=== PATIENT | female | born 1995 | race Caucasian/White ===

== ENCOUNTER 2017-10-18 01:27 | Inpatient (IN) | payer BC ==
[~2017-10-18] VITALS: Ht 167.6 cm; Wt 98.7 kg
[~2017-10-18 01:27] MED LIST: ACET120S; ALBIPROI INH; ALBU.083IS IH; ALBU90OI6 INH; ALBU90OI61 INH; AMOCLA875 PO; Ativan1 MG PO; B/C; BENADRYL25 MG PO; CEPH500; CIPR500 PO; CRUTCH4 USE; CYCL10 PO; EPIN.3I IM; FAMO40 PO; FERR325 PO; HYDACE5 PO; IBUP800 PO; INSLIS75I; LORA.5 PO; ONDA4 PO; OTC VITAMINS; PHENA100 PO; PRED10 PO; PRED20 PO; PRENA1 CHEW TA1.4 MG; PROG100 PO; PROM25; Pepcid20 MG PO; Prednisone10 MG PO; TOPI50 PO; VERA120ERB PO; [UNRECOGNIZED DRUG - OTHER]; [UNRECOGNIZED DRUG - REMARK]
[2017-10-18 02:11] LABS: BASOPHILS ABSOLUTE AUTO 0.09 K/mm3 (0.00-0.23); BASOPHILS PERCENT AUTO 1 % (0-2); EOSINOPHILS ABSOLUTE AUTO 0.31 K/mm3 (0.00-0.68); EOSINOPHILS PERCENT AUTO 3 % (0-6); Hematocrit 40.1 % (33.0-51.0); IMMATURE GRAN ABSOLUTE AUTO 0.03 K/mm3 (0.00-0.10); IMMATURE GRAN PERCENT AUTO 0 % (0-1); LYMPHOCYTES ABSOLUTE AUTO 5.09 K/mm3 (0.84-5.20); LYMPHOCYTES PERCENT AUTO 45 % (21-46); MONOCYTES ABSOLUTE AUTO 1.06 K/mm3 (0.16-1.47); MONOCYTES PERCENT AUTO 9 % (4-13); Mean Corpuscular HGB 27.7 pg (26.0-34.0); Mean Corpuscular HGB Conc 32.4 g/dL (31.5-36.5); Mean Corpuscular Volume 86 fL (80-100); Mean Platelet Volume 10.2 fL (9.1-12.4); NEUTROPHILS ABSOLUTE AUTO 4.86 K/mm3 (1.96-9.15); NEUTROPHILS PERCENT AUTO 42 % (41-73); Platelet Count 338 K/mm3 (150-400); RDW Coefficient Variation 13.1 % (11.7-14.2); RDW Standard Deviation 40.5 fL (35.1-46.3); Red Blood Cell Count 4.69 M/mm3 (3.80-5.20); White Blood Cell Count 11.44 K/mm3 (4.00-11.30)
[2017-10-18 02:23] LABS: Alanine Aminotransfer (ALT/SGP 14 U/L (12-78); Albumin, Blood 3.8 g/dL (3.4-5.0); Alk Phos 73 U/L (50-136); Anion Gap 7 mmol/L (6-16); Aspartate Aminotrans (AST/SGOT 9 U/L (12-37); Bilirubin, Total 0.2 mg/dL (0.1-1.0); Blood Urea Nitrogen 16 mg/dL (8-24); Bun/Creatinine Ratio 26.3 (12.0-20.0); CO2, Blood 28 mmol/L (21-32); Calcium, Blood 8.5 mg/dL (8.5-10.1); Chloride, Blood 104 mmol/L (98-108); Creatinine, Blood 0.61 mg/dL (0.40-1.00); Globulin, Blood 3.9 g/dL (2.2-4.0); Glomerular Filtration Rate >60 (60-); Glucose, Blood 68 mg/dL (70-99); Potassium, Blood 3.9 mmol/L (3.5-5.5); Sodium, Blood 139 mmol/L (136-145); Total Protein, Blood 7.7 g/dL (6.4-8.2)
[2017-10-19 03:44] LABS: BASOPHILS ABSOLUTE AUTO 0.03 K/mm3 (0.00-0.23); BASOPHILS PERCENT AUTO 0 % (0-2); EOSINOPHILS PERCENT AUTO 0 % (0-6); Hematocrit 39.5 % (33.0-51.0); IMMATURE GRAN ABSOLUTE AUTO 0.13 K/mm3 (0.00-0.10); IMMATURE GRAN PERCENT AUTO 1 % (0-1); LYMPHOCYTES ABSOLUTE AUTO 0.89 K/mm3 (0.84-5.20); LYMPHOCYTES PERCENT AUTO 4 % (21-46); MONOCYTES ABSOLUTE AUTO 0.49 K/mm3 (0.16-1.47); MONOCYTES PERCENT AUTO 2 % (4-13); Mean Corpuscular HGB 27.4 pg (26.0-34.0); Mean Corpuscular HGB Conc 32.9 g/dL (31.5-36.5); Mean Platelet Volume 9.9 fL (9.1-12.4); NEUTROPHILS ABSOLUTE AUTO 22.19 K/mm3 (1.96-9.15); NEUTROPHILS PERCENT AUTO 94 % (41-73); Platelet Count 367 K/mm3 (150-400); RDW Coefficient Variation 13.3 % (11.7-14.2); RDW Standard Deviation 40.5 fL (35.1-46.3); Red Blood Cell Count 4.75 M/mm3 (3.80-5.20); White Blood Cell Count 23.73 K/mm3 (4.00-11.30)
[2017-10-19 03:57] LABS: Mean Corpuscular Volume 83 fL (80-100)
[2017-10-19 04:14] LABS: Anion Gap 9 mmol/L (6-16); Blood Urea Nitrogen 13 mg/dL (8-24); Bun/Creatinine Ratio 25.9 (12.0-20.0); CO2, Blood 26 mmol/L (21-32); Chloride, Blood 106 mmol/L (98-108); Glomerular Filtration Rate >60 (60-); Glucose, Blood 171 mg/dL (70-99); Sodium, Blood 141 mmol/L (136-145)
[2017-10-20 05:23] LABS: BASOPHILS ABSOLUTE AUTO 0.01 K/mm3 (0.00-0.23); BASOPHILS PERCENT AUTO 0 % (0-2); EOSINOPHILS PERCENT AUTO 0 % (0-6); Hematocrit 38.3 % (33.0-51.0); Hemoglobin 12.6 g/dL (11.5-16.0); IMMATURE GRAN PERCENT AUTO 1 % (0-1); LYMPHOCYTES PERCENT AUTO 7 % (21-46); MONOCYTES ABSOLUTE AUTO 0.45 K/mm3 (0.16-1.47); MONOCYTES PERCENT AUTO 2 % (4-13); Mean Corpuscular HGB 27.8 pg (26.0-34.0); Mean Corpuscular HGB Conc 32.9 g/dL (31.5-36.5); Mean Corpuscular Volume 85 fL (80-100); Mean Platelet Volume 10.4 fL (9.1-12.4); NEUTROPHILS ABSOLUTE AUTO 19.64 K/mm3 (1.96-9.15); NEUTROPHILS PERCENT AUTO 91 % (41-73); Platelet Count 328 K/mm3 (150-400); RDW Coefficient Variation 13.6 % (11.7-14.2); RDW Standard Deviation 42.1 fL (35.1-46.3); Red Blood Cell Count 4.53 M/mm3 (3.80-5.20)
[2017-10-20 06:07] LABS: Anion Gap 10 mmol/L (6-16); Blood Urea Nitrogen 18 mg/dL (8-24); Bun/Creatinine Ratio 32.3 (12.0-20.0); CO2, Blood 24 mmol/L (21-32); Calcium, Blood 8.8 mg/dL (8.5-10.1); Chloride, Blood 105 mmol/L (98-108); Creatinine, Blood 0.56 mg/dL (0.40-1.00); Glomerular Filtration Rate >60 (60-); Glucose, Blood 121 mg/dL (70-99); Potassium, Blood 4.1 mmol/L (3.5-5.5); Sodium, Blood 139 mmol/L (136-145)
[2017-10-20] MEDS ORDERED: EPIPEN 2-P0.3 MG/0.3 IM (11:44)
[2017-10-20] MEDS ORDERED: DIPH50 PO (11:48)
[2017-10-20] MEDS ORDERED: FAMO20 PO (11:49)
[2017-10-20] MEDS ORDERED: PRED20 PO (11:51)
== END 2017-10-20 12:00 | disposition home or self-care (01) | DRG 916 ==
LOC: ER 01:27 → ICUW 02:27
PROVIDERS: Emergency Medicine; Internal Medicine Critical Care Medicine
DX: T78.09XA Anaphylactic reaction due to other food products, initial encounter (principal); D72.829 Elevated white blood cell count, unspecified; F17.210 Nicotine dependence, cigarettes, uncomplicated; G43.909 Migraine, unspecified, not intractable, without status migrainosus; T38.0X5A Adverse effect of glucocorticoids and synthetic analogues, initial encounter; J45.909 Unspecified asthma, uncomplicated; Z79.899 Other long term (current) drug therapy; Z88.0 Allergy status to penicillin; Z88.8 Allergy status to other drugs, medicaments and biological substances; Z91.030 Bee allergy status; Z98.84 Bariatric surgery status
CPT/HCPCS: 36415; 71046; 80048; 80053; 85025; 86160; 94640; 96372; 96374; 96375; 99285; J0171; J1200; J2930; J3490; J7070; Q2038

== ENCOUNTER 2017-10-22 18:28 | Emergency (ER) | payer BC ==
[~2017-10-22] VITALS: Ht 167.6 cm; Wt 95.2 kg
[~2017-10-22 18:28] MED LIST changes: +DIPH50 PO; +EPIPEN 2-P0.3 MG/0.3 IM; +FAMO20 PO
[2017-10-22] MEDS ORDERED: BENADRYL25 MG PO (20:40)
[2017-10-22] MEDS ORDERED: Prednisone50 MG PO (20:40)
== END 2017-10-22 22:55 | disposition home or self-care (01) ==
LOC: ER 18:28
DX: T78.2XXA Anaphylactic shock, unspecified, initial encounter (principal); J45.909 Unspecified asthma, uncomplicated; Z91.038 Other insect allergy status; Z88.0 Allergy status to penicillin; Z91.018 Allergy to other foods; Z88.6 Allergy status to analgesic agent; Z79.899 Other long term (current) drug therapy; Z79.52 Long term (current) use of systemic steroids; Z90.89 Acquired absence of other organs
CPT/HCPCS: 36415; 96374; 96375; 99283; J0171; J1100; J1200

== ENCOUNTER 2017-11-19 19:09 | Emergency (ER) | payer BC ==
[~2017-11-19] VITALS: Ht 167.6 cm; Wt 96.6 kg
[~2017-11-19 19:09] MED LIST changes: -ASTHMANEFRIN R1 EACH INH; -METPRE4DP PO; -Pepcid40 MG PO; -Prednisone20 MG PO; -ZYRTEC PO
[2017-11-19] MEDS ORDERED: METPRE4DP PO (20:11)
[2017-11-19] MEDS ORDERED: Pepcid40 MG PO (20:11)
[2017-11-19] MEDS ORDERED: DIPH50 PO (20:11)
== END 2017-11-19 20:18 | disposition home or self-care (01) ==
LOC: ER 19:09
DX: T78.3XXA Angioneurotic edema, initial encounter (principal); Z79.899 Other long term (current) drug therapy; Z88.6 Allergy status to analgesic agent; Z88.0 Allergy status to penicillin; Z91.018 Allergy to other foods; Z91.038 Other insect allergy status
CPT/HCPCS: 96374; 96375; 99283; J1200; J2930; J3490

== ENCOUNTER → 2017-11-19 | Outpatient (CLI) | payer BC ==
[~2017-11-19] MED LIST changes: +ASTHMANEFRIN R1 EACH INH; +METPRE4DP PO; +Pepcid40 MG PO; +Prednisone20 MG PO; +Prednisone50 MG PO; +ZYRTEC PO
== END ==
LOC: LAB 11:50 → LAB SHORT 11:50
PROVIDERS: Allergy & Immunology Allergy
DX: T78.2XXD Anaphylactic shock, unspecified, subsequent encounter (principal); T78.3XXD Angioneurotic edema, subsequent encounter; T78.00XD Anaphylactic reaction due to unspecified food, subsequent encounter; T63.441D Toxic effect of venom of bees, accidental (unintentional), subsequent encounter; Q82.2 Congenital cutaneous mastocytosis
CPT/HCPCS: 81050; 82542

== ENCOUNTER 2017-11-30 14:23 | Emergency (ER) | payer BC ==
[~2017-11-30] VITALS: Ht 167.6 cm; Wt 93.4 kg
[~2017-11-30 14:23] MED LIST changes: +METPRE4DP PO; +Pepcid40 MG PO
[2017-11-30] MEDS ORDERED: Prednisone20 MG PO (18:51)
== END 2017-11-30 18:58 | disposition home or self-care (01) ==
LOC: ER 14:23
DX: T78.40XA Allergy, unspecified, initial encounter (principal); Z91.030 Bee allergy status; Z88.0 Allergy status to penicillin; Z88.6 Allergy status to analgesic agent; Z79.899 Other long term (current) drug therapy; Z91.018 Allergy to other foods; Z79.52 Long term (current) use of systemic steroids; G43.909 Migraine, unspecified, not intractable, without status migrainosus; J45.909 Unspecified asthma, uncomplicated; F17.200 Nicotine dependence, unspecified, uncomplicated
CPT/HCPCS: 94640; 96361; 96374; 96375; 99283; J1200; J2930; J3490; J7030

== ENCOUNTER 2017-12-15 19:23 | Observation (INO) | payer BC ==
[~2017-12-15] VITALS: Ht 167.6 cm; Wt 96.6 kg
[~2017-12-15 19:23] MED LIST changes: +Prednisone20 MG PO
[2017-12-15] MEDS ORDERED: ZYRTEC PO (19:31)
[2017-12-15 22:55] LABS: BASOPHILS ABSOLUTE AUTO 0.06 K/mm3 (0.00-0.23); BASOPHILS PERCENT AUTO 1 % (0-2); EOSINOPHILS ABSOLUTE AUTO 0.22 K/mm3 (0.00-0.68); EOSINOPHILS PERCENT AUTO 3 % (0-6); Hematocrit 40.6 % (33.0-51.0); Hemoglobin 13.3 g/dL (11.5-16.0); IMMATURE GRAN ABSOLUTE AUTO 0.01 K/mm3 (0.00-0.10); IMMATURE GRAN PERCENT AUTO 0 % (0-1); LYMPHOCYTES PERCENT AUTO 41 % (21-46); MONOCYTES ABSOLUTE AUTO 0.54 K/mm3 (0.16-1.47); MONOCYTES PERCENT AUTO 7 % (4-13); Mean Corpuscular HGB 28.2 pg (26.0-34.0); Mean Corpuscular HGB Conc 32.8 g/dL (31.5-36.5); Mean Corpuscular Volume 86 fL (80-100); Mean Platelet Volume 9.9 fL (9.1-12.4); NEUTROPHILS ABSOLUTE AUTO 3.98 K/mm3 (1.96-9.15); NEUTROPHILS PERCENT AUTO 49 % (41-73); Platelet Count 396 K/mm3 (150-400); RDW Coefficient Variation 13.7 % (11.7-14.2); RDW Standard Deviation 43.2 fL (35.1-46.3); Red Blood Cell Count 4.71 M/mm3 (3.80-5.20); White Blood Cell Count 8.21 K/mm3 (4.00-11.30)
[2017-12-15 23:09] LABS: Alanine Aminotransfer (ALT/SGP 20 U/L (12-78); Albumin, Blood 4.1 g/dL (3.4-5.0); Albumin/Globulin Ratio 1.1 (0.8-1.8); Alk Phos 66 U/L (50-136); Anion Gap 7 mmol/L (6-16); Aspartate Aminotrans (AST/SGOT 11 U/L (12-37); Bilirubin, Total 0.2 mg/dL (0.1-1.0); Blood Urea Nitrogen 12 mg/dL (8-24); Bun/Creatinine Ratio 19.4 (12.0-20.0); CO2, Blood 26 mmol/L (21-32); Calcium, Blood 8.8 mg/dL (8.5-10.1); Chloride, Blood 107 mmol/L (98-108); Creatinine, Blood 0.62 mg/dL (0.40-1.00); Globulin, Blood 3.7 g/dL (2.2-4.0); Glomerular Filtration Rate >60 (60-); Glucose, Blood 82 mg/dL (70-99); Potassium, Blood 3.6 mmol/L (3.5-5.5); Sodium, Blood 140 mmol/L (136-145); Total Protein, Blood 7.8 g/dL (6.4-8.2)
[2017-12-16 03:47] LABS: BASOPHILS ABSOLUTE AUTO 0.01 K/mm3 (0.00-0.23); BASOPHILS PERCENT AUTO 0 % (0-2); EOSINOPHILS PERCENT AUTO 0 % (0-6); Hematocrit 39.3 % (33.0-51.0); Hemoglobin 13.1 g/dL (11.5-16.0); IMMATURE GRAN ABSOLUTE AUTO 0.01 K/mm3 (0.00-0.10); IMMATURE GRAN PERCENT AUTO 0 % (0-1); LYMPHOCYTES PERCENT AUTO 9 % (21-46); MONOCYTES ABSOLUTE AUTO 0.03 K/mm3 (0.16-1.47); MONOCYTES PERCENT AUTO 1 % (4-13); Mean Corpuscular HGB 28.5 pg (26.0-34.0); Mean Corpuscular HGB Conc 33.3 g/dL (31.5-36.5); Mean Corpuscular Volume 85 fL (80-100); Mean Platelet Volume 9.5 fL (9.1-12.4); NEUTROPHILS ABSOLUTE AUTO 5.86 K/mm3 (1.96-9.15); NEUTROPHILS PERCENT AUTO 90 % (41-73); Platelet Count 350 K/mm3 (150-400); RDW Coefficient Variation 13.5 % (11.7-14.2); RDW Standard Deviation 42.1 fL (35.1-46.3); White Blood Cell Count 6.51 K/mm3 (4.00-11.30)
[2017-12-16 04:00] LABS: Alanine Aminotransfer (ALT/SGP 16 U/L (12-78); Albumin, Blood 3.8 g/dL (3.4-5.0); Alk Phos 62 U/L (50-136); Anion Gap 12 mmol/L (6-16); Aspartate Aminotrans (AST/SGOT 7 U/L (12-37); Bilirubin, Total 0.3 mg/dL (0.1-1.0); Blood Urea Nitrogen 10 mg/dL (8-24); Bun/Creatinine Ratio 18.9 (12.0-20.0); CO2, Blood 19 mmol/L (21-32); Calcium, Blood 8.6 mg/dL (8.5-10.1); Chloride, Blood 109 mmol/L (98-108); Creatinine, Blood 0.53 mg/dL (0.40-1.00); Globulin, Blood 3.8 g/dL (2.2-4.0); Glomerular Filtration Rate >60 (60-); Glucose, Blood 222 mg/dL (70-99); Potassium, Blood 3.6 mmol/L (3.5-5.5); Sodium, Blood 140 mmol/L (136-145); Total Protein, Blood 7.6 g/dL (6.4-8.2)
[2017-12-17] MEDS ORDERED: BENADRYL25 MG PO (11:01)
[2017-12-17] MEDS ORDERED: FAMO20 PO (11:05)
[2017-12-17] MEDS ORDERED: PRED10 PO (11:08)
[2017-12-17] MEDS ORDERED: ASTHMANEFRIN R1 EACH INH (11:29)
== END 2017-12-17 12:20 | disposition home or self-care (01) ==
LOC: ER 19:23 → ERHOLD 19:24 → PCU 12-16 12:43
PROVIDERS: Internal Medicine
DX: T78.2XXA Anaphylactic shock, unspecified, initial encounter (principal); T78.3XXA Angioneurotic edema, initial encounter; J45.909 Unspecified asthma, uncomplicated; G43.909 Migraine, unspecified, not intractable, without status migrainosus; Z86.69 Personal history of other diseases of the nervous system and sense organs; Z91.038 Other insect allergy status; Z88.0 Allergy status to penicillin; Z91.09 Other allergy status, other than to drugs and biological substances; Z91.018 Allergy to other foods; Z88.8 Allergy status to other drugs, medicaments and biological substances; Z79.899 Other long term (current) drug therapy
CPT/HCPCS: 36415; 80053; 82785; 83520; 85025; 94640; 96361; 96372; 96374; 96375; 96376; 99285; G0378; J0171; J1200; J1650; J2930; J3490; J7030

== ENCOUNTER 2017-12-24 06:08 | Emergency (ER) | payer BC ==
[~2017-12-24] VITALS: Ht 160 cm; Wt 68.0 kg
[~2017-12-24 06:08] MED LIST changes: +ASTHMANEFRIN R1 EACH INH; +ZYRTEC PO
== END 2017-12-24 10:13 | disposition home or self-care (01) ==
LOC: ER 06:08
DX: T78.3XXA Angioneurotic edema, initial encounter (principal); J45.909 Unspecified asthma, uncomplicated; G43.909 Migraine, unspecified, not intractable, without status migrainosus; I95.9 Hypotension, unspecified; Z88.0 Allergy status to penicillin; Z91.018 Allergy to other foods; Z91.048 Other nonmedicinal substance allergy status
CPT/HCPCS: 94640; 96372; 96374; 96375; 99284; J0171; J1200; J2930; J3490

== ENCOUNTER 2018-01-02 21:17 | Emergency (ER) | payer BC ==
[~2018-01-02] VITALS: Ht 167.6 cm; Wt 94.3 kg
[2018-01-02] MEDS ORDERED: METPRE4DP PO (21:56)
[2018-01-02] MEDS ORDERED: DIPH50 PO (21:56)
[2018-01-02] MEDS ORDERED: Pepcid40 MG PO (21:56)
== END 2018-01-02 22:11 | disposition home or self-care (01) ==
LOC: ER 21:17
DX: T78.3XXA Angioneurotic edema, initial encounter (principal); J45.909 Unspecified asthma, uncomplicated; Z79.52 Long term (current) use of systemic steroids; Z79.899 Other long term (current) drug therapy
CPT/HCPCS: 36415; 94640; 96372; 96374; 96375; 99283; J0171; J1200; J2930; J3490

== ENCOUNTER 2018-02-17 09:26 | Emergency (ER) | payer BC ==
[~2018-02-17] VITALS: Ht 167.6 cm; Wt 99.8 kg
[2018-02-17] MEDS ORDERED: Prednisone20 MG PO (12:53)
== END 2018-02-17 13:06 | disposition home or self-care (01) ==
LOC: ER 09:26
DX: T78.3XXA Angioneurotic edema, initial encounter (principal); Z91.038 Other insect allergy status; Z88.0 Allergy status to penicillin; Z91.018 Allergy to other foods; Z91.030 Bee allergy status; Z88.8 Allergy status to other drugs, medicaments and biological substances; Z88.6 Allergy status to analgesic agent; Z79.899 Other long term (current) drug therapy
CPT/HCPCS: 36415; 94640; 96361; 96374; 96375; 99283; J1200; J2930; J3490; J7030

== ENCOUNTER 2018-03-07 18:43 | Emergency (ER) | payer BC ==
[~2018-03-07] VITALS: Ht 167.6 cm; Wt 99.8 kg
[2018-03-07] MEDS ORDERED: PRED20 PO (20:43)
== END 2018-03-07 21:16 | disposition home or self-care (01) ==
LOC: ER 18:43
DX: T78.3XXA Angioneurotic edema, initial encounter (principal); Z91.030 Bee allergy status; Z88.0 Allergy status to penicillin; Z91.048 Other nonmedicinal substance allergy status; Z88.8 Allergy status to other drugs, medicaments and biological substances; Z79.899 Other long term (current) drug therapy; Z79.52 Long term (current) use of systemic steroids; J45.909 Unspecified asthma, uncomplicated; G43.909 Migraine, unspecified, not intractable, without status migrainosus
CPT/HCPCS: 36415; 94640; 96361; 96374; 96375; 99283; J1200; J2930; J3490; J7120

== ENCOUNTER 2018-12-02 18:04 | Emergency (ER) | payer BC ==
[~2018-12-02] VITALS: Ht 167.6 cm; Wt 104.3 kg
[2018-12-02] MEDS ORDERED: Verotin-Gr Cap1 EACH PO (18:49)
[2018-12-02] MEDS ORDERED: FIRAZYR30 MG/3 ML SQ (18:49)
[2018-12-02 20:21] LABS: Alanine Aminotransfer (ALT/SGP 16 U/L (12-78); Beta HCG, Quantitative, Serum 9873 mIU/mL (0-3)
[2018-12-04 11:06] LABS: HCV ANTIBODY <0.1 (0.0-0.9)
[2018-12-05 02:05] LABS: HIV SCREEN 4TH GENERATION WRFX Non Reactive (Non Reactive)
== END 2018-12-02 20:25 | disposition home or self-care (01) ==
LOC: ER 18:04
PROVIDERS: Physician Assistant
DX: Z77.21 Contact with and (suspected) exposure to potentially hazardous body fluids (principal); J45.909 Unspecified asthma, uncomplicated; G43.909 Migraine, unspecified, not intractable, without status migrainosus; I95.9 Hypotension, unspecified
CPT/HCPCS: 36415; 84460; 84702; 86317; 86803; 87389; 99282

== ENCOUNTER 2018-12-26 19:30 | Emergency (ER) | payer BC ==
[~2018-12-26] VITALS: Ht 167.6 cm; Wt 106.6 kg
[~2018-12-26 19:30] MED LIST changes: +FIRAZYR30 MG/3 ML SQ; +Percocet 5-3251 EACH PO; +Verotin-Gr Cap1 EACH PO
[2018-12-26 20:11] LABS: Source, Urine Clean Catch
[2018-12-26 20:13] LABS: Bilirubin, Urine Neg (Neg); Blood, Urine Neg (Neg); Glucose Qualitative, Urine Neg (Neg); Ketones, Urine Neg (Neg); Leukocyte Esterase, Urine 1+ (Neg); Nitrite, Urine Neg (Neg); Protein, Urine Neg (Neg); Urobilinogen, Urine NORM (Normal)
[2018-12-26 20:19] LABS: Appearance, Urine Clear (Clear); Color, Urine Pale Yellow (P-Yellow)
[2018-12-26 20:24] LABS: Bacteria Mod /hpf; Mucus Light ({null, 0-Heavy}); Red Blood Cells, Urine Rare /hpf (0-2); Squamous Epithelial Cells Mod /hpf (Few); White Blood Cells, Urine 0-2 /hpf (0-5)
== END 2018-12-26 22:56 | disposition home or self-care (01) ==
LOC: ER 19:30
PROVIDERS: Emergency Medicine
DX: N83.202 Unspecified ovarian cyst, left side (principal); J45.909 Unspecified asthma, uncomplicated; Z88.0 Allergy status to penicillin; Z88.6 Allergy status to analgesic agent; Z91.030 Bee allergy status; Z88.8 Allergy status to other drugs, medicaments and biological substances; Z79.899 Other long term (current) drug therapy
CPT/HCPCS: 76770; 76830; 76856; 81001; 87086; 99284-25

== ENCOUNTER → 2019-04-04 | Outpatient (CLI) | payer BC | END | disposition home or self-care (01) | LOC: LAB 15:09 → LAB SHORT 15:09 | DX: Z09 Encounter for follow-up examination after completed treatment for conditions other than malignant neoplasm (principal); Z86.14 Personal history of Methicillin resistant Staphylococcus aureus infection | CPT/HCPCS: 87081 ==

== ENCOUNTER → 2019-05-02 | Outpatient (CLI) | payer BC | END | disposition home or self-care (01) | LOC: LAB 14:08 → LAB SHORT 14:08 | DX: Z09 Encounter for follow-up examination after completed treatment for conditions other than malignant neoplasm (principal); Z86.14 Personal history of Methicillin resistant Staphylococcus aureus infection | CPT/HCPCS: 87081 ==

== ENCOUNTER 2019-08-28 18:16 | Emergency (ER) | payer BC ==
[~2019-08-28] VITALS: Ht 167.6 cm; Wt 114.8 kg
[2019-08-28 19:03] LABS: BASOPHILS ABSOLUTE AUTO 0.02 K/mm3 (0.00-0.23); BASOPHILS PERCENT AUTO 0 % (0-2); EOSINOPHILS ABSOLUTE AUTO 0.16 K/mm3 (0.00-0.68); EOSINOPHILS PERCENT AUTO 2 % (0-6); Hematocrit 32.2 % (33.0-51.0); Hemoglobin 10.4 g/dL (11.5-16.0); IMMATURE GRAN ABSOLUTE AUTO 0.05 K/mm3 (0.00-0.10); IMMATURE GRAN PERCENT AUTO 1 % (0-1); LYMPHOCYTES ABSOLUTE AUTO 2.68 K/mm3 (0.84-5.20); LYMPHOCYTES PERCENT AUTO 26 % (21-46); MONOCYTES ABSOLUTE AUTO 1.08 K/mm3 (0.16-1.47); MONOCYTES PERCENT AUTO 10 % (4-13); Mean Corpuscular HGB 26.7 pg (26.0-34.0); Mean Corpuscular HGB Conc 32.3 g/dL (31.5-36.5); Mean Corpuscular Volume 83 fL (80-100); Mean Platelet Volume 9.6 fL (9.1-12.4); NEUTROPHILS ABSOLUTE AUTO 6.39 K/mm3 (1.96-9.15); NEUTROPHILS PERCENT AUTO 62 % (41-73); Platelet Count 342 K/mm3 (150-400); RDW Coefficient Variation 13.3 % (11.7-14.2); White Blood Cell Count 10.38 K/mm3 (4.00-11.30)
[2019-08-28 19:24] LABS: Alanine Aminotransfer (ALT/SGP 19 U/L (12-78); Albumin, Blood 2.6 g/dL (3.4-5.0); Albumin/Globulin Ratio 0.6 (0.8-1.8); Alk Phos 93 U/L (50-136); Anion Gap 8 mmol/L (6-16); Aspartate Aminotrans (AST/SGOT 23 U/L (12-37); Bilirubin, Total 0.4 mg/dL (0.1-1.0); Blood Urea Nitrogen 7 mg/dL (8-24); Bun/Creatinine Ratio 14.6 (12.0-20.0); CO2, Blood 22 mmol/L (21-32); Calcium, Blood 8.3 mg/dL (8.5-10.1); Chloride, Blood 107 mmol/L (98-108); Creatinine, Blood 0.48 mg/dL (0.40-1.00); Glomerular Filtration Rate >60 (60-); Glucose, Blood 80 mg/dL (70-99); Potassium, Blood 3.5 mmol/L (3.5-5.5); Sodium, Blood 137 mmol/L (136-145); Total Protein, Blood 6.6 g/dL (6.4-8.2); Troponin I <0.015 ng/mL (0.000-0.040)
== END 2019-08-29 00:10 | disposition home or self-care (01) ==
LOC: ER 18:16
PROVIDERS: Emergency Medicine
DX: O99.89 Other specified diseases and conditions complicating pregnancy, childbirth and the puerperium (principal); R07.9 Chest pain, unspecified; O99.613 Diseases of the digestive system complicating pregnancy, third trimester; K21.9 Gastro-esophageal reflux disease without esophagitis; O99.513 Diseases of the respiratory system complicating pregnancy, third trimester; J45.909 Unspecified asthma, uncomplicated; G43.909 Migraine, unspecified, not intractable, without status migrainosus; Z91.030 Bee allergy status; Z88.0 Allergy status to penicillin; Z88.6 Allergy status to analgesic agent; Z91.018 Allergy to other foods; Z3A.33 33 weeks gestation of pregnancy
CPT/HCPCS: 36415; 59025; 71260; 80053; 83690; 84484; 85025; 93005; 93010; 93970; 99213; 99284-25; Q9967

== ENCOUNTER 2019-09-22 22:48 | Observation (INO) | payer BC ==
[~2019-09-22] VITALS: Ht 167.6 cm; Wt 112.3 kg
[2019-09-23] MEDS ORDERED: TAKHZYRO300 MG/2 M SQ (00:15)
[2019-09-23 00:23] LABS: BASOPHILS ABSOLUTE AUTO 0.03 K/mm3 (0.00-0.23); BASOPHILS PERCENT AUTO 0 % (0-2); EOSINOPHILS ABSOLUTE AUTO 0.16 K/mm3 (0.00-0.68); EOSINOPHILS PERCENT AUTO 1 % (0-6); Hematocrit 31.5 % (33.0-51.0); IMMATURE GRAN ABSOLUTE AUTO 0.05 K/mm3 (0.00-0.10); IMMATURE GRAN PERCENT AUTO 0 % (0-1); LYMPHOCYTES ABSOLUTE AUTO 3.93 K/mm3 (0.84-5.20); LYMPHOCYTES PERCENT AUTO 32 % (21-46); MONOCYTES ABSOLUTE AUTO 1.23 K/mm3 (0.16-1.47); MONOCYTES PERCENT AUTO 10 % (4-13); Mean Corpuscular HGB 25.3 pg (26.0-34.0); Mean Corpuscular HGB Conc 31.7 g/dL (31.5-36.5); Mean Corpuscular Volume 80 fL (80-100); Mean Platelet Volume 9.9 fL (9.1-12.4); NEUTROPHILS PERCENT AUTO 57 % (41-73); Platelet Count 362 K/mm3 (150-400); RDW Coefficient Variation 13.6 % (11.7-14.2); RDW Standard Deviation 39.9 fL (35.1-46.3); Red Blood Cell Count 3.95 M/mm3 (3.80-5.20)
[2019-09-23 00:38] LABS: Source, Urine Clean Catch
[2019-09-23 00:41] LABS: Blood, Urine Neg (Neg); Glucose Qualitative, Urine Neg (Neg); Ketones, Urine 1+ (Neg); Leukocyte Esterase, Urine 1+ (Neg); Nitrite, Urine Neg (Neg); Protein, Urine 2+ (Neg); Urobilinogen, Urine 2+ (Normal); pH, Urine 6.5 (5.0-8.0)
[2019-09-23 00:43] LABS: Alanine Aminotransfer (ALT/SGP 13 U/L (12-78); Albumin, Blood 2.5 g/dL (3.4-5.0); Albumin/Globulin Ratio 0.6 (0.8-1.8); Alk Phos 108 U/L (50-136); Anion Gap 8 mmol/L (6-16); Aspartate Aminotrans (AST/SGOT 11 U/L (12-37); Bilirubin, Total 0.3 mg/dL (0.1-1.0); Blood Urea Nitrogen 8 mg/dL (8-24); Bun/Creatinine Ratio 16.2 (12.0-20.0); CO2, Blood 24 mmol/L (21-32); Calcium, Blood 8.5 mg/dL (8.5-10.1); Chloride, Blood 109 mmol/L (98-108); Creatinine, Blood 0.49 mg/dL (0.40-1.00); Glomerular Filtration Rate >60 (60-); Glucose, Blood 84 mg/dL (70-99); Potassium, Blood 3.7 mmol/L (3.5-5.5); Sodium, Blood 141 mmol/L (136-145); Total Protein, Blood 6.5 g/dL (6.4-8.2)
[2019-09-23 00:48] LABS: Appearance, Urine Hazy (Clear); Bilirubin, Urine 1+ (Neg); Color, Urine Amber (P-Yellow)
[2019-09-23 00:50] LABS: Amorphous Mod (0-Heavy); Bacteria Mod /hpf; Mucus Light (0-Heavy); Red Blood Cells, Urine Not Seen /hpf (0-2); Squamous Epithelial Cells Mod /hpf (Few)
--- NOTE | 2019-09-23 02:24 | NUR ---
ADMIT NOTE: PT ARRIVED FROM ED TO ICU ROOM 12 VIA GURNEY. PT A+O X4, LS CLEAR, PT DENIED SOB OR OBSTRUCTED AIR WAY. PT MAINTIAINING AIRWAY WITHOUT DIFFICULTY. VSS. PT ABLE TO STAND AND TRANSFER SELF TO HOSP BED. PT STATED HAD TAKEN A DOSE OF FIRAZYR WEDNESDAY EVENING AT APPROX 1800. PT STATED LAST DOSE OF TAKHZRYO WAS Wednesday09/17/19 SINCE IT IS A ONCE EVERY TWO WEEK SCHEDULED MEDICATION. PT STATED HAD NOT RECEIVED HER SHIPMENT OF MEDICATIONS AND HAD USED HER LAST DOSE OF THE FIRAZYR. PT'S SPECIALIST WHO MANAGES HER CHRONIC ANGIOEDEMA (DR. KONSTANTIN KAMINSKI [phone]). PT CURRENTLY IN BED RESTING WATCHING TV. [facility] HAS BEEN NOTIFIED FOR FHT ORDER. PT'S AT BEDSIDE.
--- NOTE | 2019-09-23 03:42 | NUR ---
FHT: LAWSON RN FROM [facility] AT BEDSIDE WITH FHT MONITORING. PT STATED TONGUE SWELLING IS SLIGHTLY BETTER. PT STATED IS HAVING SLIGHT CONTRACTIONS. PT VSS.
--- NOTE | 2019-09-23 05:05 | NUR ---
LAWSON RN FROM [facility] STATED DR. DEXTER WAS CONTACTED BY CHARGE OF [facility] PRIOR TO LAWSON RN TO PT'S BEDSIDE FOR FHT MONITORING. FHT MONITORING FROM [id number]. SEE [facility] RN NOTE.
--- NOTE | 2019-09-23 06:38 | NUR ---
SHIFT SUMMARY: PT HAS BEEN RESTING QUIETLY. FHT COMPLETED THIS SHIFT WITHOUT DIFFICULTIES. VSS. PT SLEEPING BUT AWAKENS EASILY TO RN AT BEDSIDE. PT UP OUT OF BED X1 FOR VOID.
--- NOTE | 2019-09-23 07:40 | NUR ---
ASSUMED CARE AT 0700. REPORT FROM ORACIO QUINTEROS. PT RESTING IN BED, APPEARS TO BE SLEEPING. WAKES c VERBAL STIMULI. A&OX4. PT SPEAKING IN FULL SENTANCES. MUFFLED SPEECH. DENIES SOB. MANAGING SECRETIONS. LUNGS CLEAR. SWELLING TO TONGUE NOTED. PT REPORTS SAME WHEN ADMITTED, REPORTS IT IS NOT WORSE. PT c HX OF HERIETARY ANGIOEDEMA. PT 36 WEEKS, 6 DAYS , . STATES SHE IS SCHEDULED TO BE INDUCED ON 10/08/19. OB LONA. PT REPORTS CONTRACTIONS. INTERMITTANTLY BEING MONITORED BY CAITLIN QUINTEROS. NEXT SCHEDULED MONITORING AT 1100. DR LEES AT BEDSIDE FOR ASSESSMENT. STATES HE WILL CONTACT PT'S SPECIALIST THAT MANAGES HER ANGIOEDEMA. VSS. WILL CONTINUE TO MONITOR.
--- NOTE | 2019-09-23 14:17 | NUR ---
SHIFT SUMMARY YOANA SPOKE c DR KAMINSKI, RECOMMENDED D/C AND CONTINUE ON HOME MEDS. PT REPORTS SWELLING IMPROVED. U/S COMPLETE, PT MONITORED BY OB RN INTERMITTANTLY. DR LANDIS NOTIFIED OF RESULTS OF U/S. AGREED c PLAN OF D/C. D/C INSTRUCTIONS REVIEWED c PT. PT AGREES TO RETURN TO ER IF SYMPTOMS GET WORSE. TO F/U c DR KAMINSKI IN ONE WEEK. PT WILL SCHEDULE APPT. ALL BELONGINGS HOME c PT. OTD LEON.
== END 2019-09-23 14:20 | disposition home or self-care (01) ==
LOC: ER 22:48 → ICUW 22:49
PROVIDERS: Emergency Medicine; ADMIT Hospitalist
DX: O99.113 Other diseases of the blood and blood-forming organs and certain disorders involving the immune mechanism complicating pregnancy, third trimester (principal); O99.353 Diseases of the nervous system complicating pregnancy, third trimester; O99.513 Diseases of the respiratory system complicating pregnancy, third trimester; D84.1 Defects in the complement system; J45.909 Unspecified asthma, uncomplicated; G43.909 Migraine, unspecified, not intractable, without status migrainosus; Z3A.37 37 weeks gestation of pregnancy; Z79.899 Other long term (current) drug therapy; Z88.0 Allergy status to penicillin; Z88.6 Allergy status to analgesic agent; Z88.8 Allergy status to other drugs, medicaments and biological substances; Z91.02 Food additives allergy status; Z91.030 Bee allergy status; Z91.048 Other nonmedicinal substance allergy status
CPT/HCPCS: 36415; 59025; 76819; 80053; 81001; 85025; 87077; 87086; 87186; 99285; G0378

== ENCOUNTER 2019-11-03 07:17 | Day surgery (SDC) | payer BC ==
[~2019-11-03] VITALS: Ht 167.6 cm; Wt 111.0 kg
[~2019-11-03 07:17] MED LIST changes: +ALBU90OI INH; +COMBIVENT RESPIM4 GM INH; +TAKHZYRO300 MG/2 M SQ
--- NOTE | 2019-11-03 08:05 | NUR ---
11/03/19 0805 Pura Carney FIRST IV ATTEMPT IN LEFT HAND, IV BLEW. SECOND ATTEMPT IN LEFT AC. CATH. WOULD NOT ADVANCE. THIRD ATTEMPT IN R HAND WITH 20 G. SUCCESSFUL.
--- NOTE | 2019-11-03 10:03 | NUR ---
11/03/19 1003 KRISTINE HERNANDEZ PATIENT WITH FAMILY HX OF ANGIOEDEMA. PATIENT DENIES THROAT, TONGUE, OR LIP SWELLING, DIFFICULTY SWALLOWING, OR TROUBLE BREATHING.
--- NOTE | 2019-11-03 11:00 | NUR ---
11/03/19 1100 KRISTINE HERNANDEZ ASSISTED PATIENT IN CHANGING PAD WHEN STANDING AT BEDSIDE. OR RAQUEL PAD HAD MODERATE AMOUNT OF RED BLOOD PRESENT. WOOD SKI MAKERLUISITO HAD ADVISED THIS RN IN PACU THAT PATIENT HAD PRODUCED FEW CLOTS WHEN PRESSURE WAS APPLIED TO ABDOMEN IN OR. THIS WAS MONITORED IN PACU AND CLEANED. PLEASE SEE DISCHARGE COMMENT REGARDING BLEEDING WELL.
== END 2019-11-03 10:56 | disposition home or self-care (01) ==
LOC: ORSCSDS 07:17
PROVIDERS: Obstetrics & Gynecology
PROC: 0UT74ZZ Resection of Bilateral Fallopian Tubes, Percutaneous Endoscopic Approach (ICD-10-PCS; principal; 2019-11-03 08:30)
DX: Z30.2 Encounter for sterilization (principal); N80.3 Endometriosis of pelvic peritoneum; G47.33 Obstructive sleep apnea (adult) (pediatric); G40.909 Epilepsy, unspecified, not intractable, without status epilepticus; F41.8 Other specified anxiety disorders; E66.01 Morbid (severe) obesity due to excess calories; Z68.39 Body mass index [BMI] 39.0-39.9, adult; Z79.899 Other long term (current) drug therapy
CPT/HCPCS: 88302; J0171; J0690; J1100; J1885; J2250; J2405; J2704; J3010; J7120

== ENCOUNTER → 2020-06-13 | Outpatient (CLI) | payer BC ==
[2020-06-13 13:47] LABS: BASOPHILS ABSOLUTE AUTO 0.05 K/mm3 (0.00-0.23); BASOPHILS PERCENT AUTO 1 % (0-2); EOSINOPHILS ABSOLUTE AUTO 0.18 K/mm3 (0.00-0.68); EOSINOPHILS PERCENT AUTO 2 % (0-6); Hematocrit 36.7 % (33.0-51.0); Hemoglobin 11.5 g/dL (11.5-16.0); IMMATURE GRAN ABSOLUTE AUTO 0.03 K/mm3 (0.00-0.10); IMMATURE GRAN PERCENT AUTO 0 % (0-1); LYMPHOCYTES ABSOLUTE AUTO 2.65 K/mm3 (0.84-5.20); LYMPHOCYTES PERCENT AUTO 29 % (21-46); MONOCYTES ABSOLUTE AUTO 0.66 K/mm3 (0.16-1.47); MONOCYTES PERCENT AUTO 7 % (4-13); Mean Corpuscular HGB 24.4 pg (26.0-34.0); Mean Corpuscular HGB Conc 31.3 g/dL (31.5-36.5); Mean Corpuscular Volume 78 fL (80-100); Mean Platelet Volume 9.7 fL (9.1-12.4); NEUTROPHILS ABSOLUTE AUTO 5.47 K/mm3 (1.96-9.15); NEUTROPHILS PERCENT AUTO 61 % (41-73); Platelet Count 417 K/mm3 (150-400); RDW Coefficient Variation 14.2 % (11.7-14.2); RDW Standard Deviation 39.9 fL (35.1-46.3); Red Blood Cell Count 4.71 M/mm3 (3.80-5.20); White Blood Cell Count 9.04 K/mm3 (4.00-11.30)
[2020-06-13 14:14] LABS: Alanine Aminotransfer (ALT/SGP 17 U/L (12-78); Albumin, Blood 3.8 g/dL (3.4-5.0); Albumin/Globulin Ratio 1.2 (0.8-1.8); Alk Phos 71 U/L (50-136); Anion Gap 6 mmol/L (6-16); Aspartate Aminotrans (AST/SGOT 8 U/L (12-37); Bilirubin, Total 0.5 mg/dL (0.1-1.0); Blood Urea Nitrogen 13 mg/dL (8-24); Bun/Creatinine Ratio 22.3 (12.0-20.0); CO2, Blood 29 mmol/L (21-32); Calcium, Blood 9.1 mg/dL (8.5-10.1); Chloride, Blood 107 mmol/L (98-108); Creatinine, Blood 0.58 mg/dL (0.40-1.00); Globulin, Blood 3.3 g/dL (2.2-4.0); Glomerular Filtration Rate >60 (60-); Glucose, Blood 79 mg/dL (70-99); Potassium, Blood 3.9 mmol/L (3.5-5.5); Sodium, Blood 142 mmol/L (136-145); Thyroid Stimulating Hormone 0.607 uIU/mL (0.360-4.800); Total Protein, Blood 7.1 g/dL (6.4-8.2)
== END ==
LOC: LAB 13:39 → LAB SHORT 13:39
PROVIDERS: Nurse Practitioner Family
DX: R53.83 Other fatigue (principal); R42 Dizziness and giddiness
CPT/HCPCS: 80053; 84443; 85025

== ENCOUNTER 2021-04-02 17:28 | Emergency (ER) | payer BC ==
[~2021-04-02] VITALS: Ht 167.6 cm; Wt 113.4 kg
== END 2021-04-03 00:26 | disposition home or self-care (01) ==
LOC: ER 17:28 → PCU 17:29 → ER 04-03 00:26
DX: D84.1 Defects in the complement system (principal); Z79.899 Other long term (current) drug therapy; Z91.030 Bee allergy status; Z88.0 Allergy status to penicillin; Z88.6 Allergy status to analgesic agent
CPT/HCPCS: 36415; 96374; 96375; 99284-25; J0597; J2930